=== PATIENT | female | born 1980 | race Caucasian/White ===

== ENCOUNTER 2020-07-23 11:37 | Emergency (ER) | payer OTHER ==
[~2020-07-23] VITALS: Ht 157.5 cm; Wt 65.8 kg
[2020-07-23] MEDS ORDERED: BACTRIM DS1 TAB PO (12:56)
[2020-07-23] MEDS ORDERED: KEFLEX500 M1 PO (12:56)
[2020-07-23 13:15] VITALS: BP 124/69
== END 2020-07-23 13:16 | disposition home or self-care (01) ==
LOC: ED 11:37
DX: H60.11 Cellulitis of right external ear (principal); Z98.51 Tubal ligation status; Z88.8 Allergy status to other drugs, medicaments and biological substances
CPT/HCPCS: J2001